=== PATIENT | female | born 1970 | race Caucasian/White ===

== ENCOUNTER → 2021-07-28 10:50 | Outpatient (BNVA) | payer OTHER, SELFPAY | PROVIDERS: PCP Internal Medicine; Visit Provider Psychiatry & Neurology Neurology | DX: E88.49 Other mitochondrial metabolism disorders (principal); R27.0 Ataxia, unspecified; R26.9 Unspecified abnormalities of gait and mobility | CPT/HCPCS: 99202 ==

== ENCOUNTER 2021-08-22 14:59 | Outpatient (REF) | payer OTHER, SELFPAY ==
--- NOTE | ~2021-08-22 | MR_ITS ---
EXAMINATION: MR BRAIN WITHOUT CONTRAST CLINICAL INFORMATION: Ataxia. COMPARISON: None. TECHNIQUE: Multiplanar, multisequence imaging of the brain was performed without contrast. FINDINGS: No diffusion abnormalities are identified to suggest an acute or subacute infarct. The ventricles are normal in size. No mass effect or midline shift is seen. No brain parenchymal signal abnormality is noted. No extra-axial fluid collections are seen. The brainstem appears normal. There is mild cerebellar volume loss of indeterminate etiology. The gradient refocused acquisition demonstrates no pathologic magnetic susceptibility artifact to indicate underlying acute or chronic blood products. The craniovertebral junction, marrow signal, and midline structures are normal. The major intracranial flow voids at the level of the [place] are preserved. The dural venous sinus flow voids are maintained. The mastoid air cells and paranasal sinuses are well aerated. MR/MR head/brain wo con IMPRESSION: Mild cerebellar volume loss of indeterminate etiology. No brainstem signal abnormalities. No acute process.
== END 2021-08-22 15:00 | disposition home or self-care (01) ==
LOC: HO.MRI 14:59
PROVIDERS: PCP Internal Medicine; Visit Provider Psychiatry & Neurology Neurology
DX: R27.0 Ataxia, unspecified (principal)
CPT/HCPCS: 70551

== ENCOUNTER → 2022-05-14 14:21 | Outpatient (BNVA) | payer OTHER, SELFPAY | PROVIDERS: PCP Internal Medicine; Visit Provider Psychiatry & Neurology Neurology | DX: R27.0 Ataxia, unspecified (principal); E88.49 Other mitochondrial metabolism disorders | CPT/HCPCS: 99212 ==

== ENCOUNTER 2023-05-10 12:54 | Outpatient (AMB) | payer OTHER, SELFPAY ==
--- NOTE | 2023-05-10 12:57 | MHC.OFFVIS ---
Intake Vital Signs 05/10/23 13:02 Height 5 ft 1 in Weight 213 lb 8 oz BMI 40.3 BP 124/82 Blood Pressure Location Rt brachial Position Sitting Respiration 16 Pulse 101 H Pulse Source Pulse Oximeter Pulse Oximetry (%) 96 Oxygen Delivery Method Room Air Intake Visit Reasons: 1 yr f/u - LVM Intake Note: Pt presents to the office for a one year follow up for ataxia. Pt reports she a little worse since the last visit. She has since moved into an assisted living facility. Desktop Support Specialist Required: No Allergies No Known Allergies Allergy (Verified 05/10/23 13:02) Medication List - Last Reconciled 05/10/23 by Malorie King MD aripiprazole 5 mg PO DAILY diclofenac potassium 50 mg PO TID PRN 30 days duloxetine 30 mg PO DAILY duloxetine 60 mg PO DAILY lamotrigine 50 mg PO DAILY lamotrigine 200 mg PO QAM levocarnitine (bulk) (L-Carnitine powder) ea miscellaneous pregabalin 200 mg PO BEDTIME propranolol 10 mg PO BID riboflavin (vitamin B2) 100 mg PO DAILY trazodone 50 - 100 mg PO BEDTIME PRN HPI HPI Comments History of Present Illness Details 53-year-old female with mitochondrial disorder follow up and follow up of her 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 After her son of mitochondrial disorder at 20 years of age she was seen by Dr. Ibarra at [facility]. Now she is following up with Dr. Phan at [facility] who sees her once a year in collaboration with the local physician . She was seeing Dr Alcocer until April of 2021 she also has psychiatric disorder and sees Dr. Leila Lawrence at [facility]. No falls. she uses a walker. she lives in an Assisted Living facility. [facility] Medical History Chronic headaches Cognitive disorder Gait disorder Tremors of nervous system NARP (neuropathy, ataxia and retinitis pigmentosa) Depression Ataxia Surgical History H/O tubal ligation Social History Alcohol intake: never Patient Tobacco Use Status: Never used Tobacco Review of Systems Neuro Reports Abnormal speech present Physical Exam Vital Signs: Last Vital Signs Pulse 101 H 05/10/23 13:02 Resp 16 05/10/23 13:02 BP 124/82 05/10/23 13:02 Pulse Ox 96 05/10/23 13:02 Oxygen Delivery Method Room Air 05/10/23 13:02 BMI result Body Mass Index 40.3 Const Other: abnormal movements Right Upper extremity and LE - coarse irregular movement - not c/w tremors , more like ataxia or chorea General: cooperative, healthy appearing and awake Nutritional Appearance: overweight Orientation/consciousness: patient oriented x3 HEENT Head: Yes normal to inspection and Yes normocephalic Neck Neck: Yes normal visual inspection Neuro Other: gait- mild stoop, can walk without the walker, small steps , mild off balance General: patient oriented x3 and moves all extremities Cranial nerves: Yes Facial sensation intact/muscles of mastication intact, Yes Nystagmus not present, Yes Normal facial strength present and Yes Midline tongue present Cognition (Neuro): normal cognition Speech: Abnormal speech present Gait exam (Neuro): Other gait observations present (mild wide based and off balance ) Motor exam (neuro): 5/5 motor strength present throughout and Other motor observations present Coordination: [id number] test normal Assessment & Plan Assessment & Plan (1) NARP (neuropathy, ataxia and retinitis pigmentosa): Code(s): E88.49 - Other mitochondrial metabolism disorders (2) Ataxia: Code(s): R27.0 - Ataxia, unspecified (3) Gait disorder: Code(s): R26.9 - Unspecified abnormalities of gait and mobility Plan Suggested PT and chair exercises. Continue pregabalin 200mg qd Continue following up at [facility] for her mitochondrial disorder. Orders: Orders PT Evaluation and Treatment Today E88.49 - Other mitochondrial metabolism disorders, R26.9 - Unspecified abnormalities of gait and mobility Coding Level of Care Code Est Pt Level 4 (27302) Diagnoses NARP (neuropathy, ataxia and retinitis pigmentosa) E88.49 Ataxia R27.0 Gait disorder R26.9
[2023-05-10 13:02] VITALS: BP 124/82; PULSE 101; RESP 16; O2SAT 96; BMI 40.3
== END 2023-05-10 13:21 | disposition home or self-care (01) ==
PROVIDERS: Visit Provider Psychiatry & Neurology Neurology
DX: E88.49 Other mitochondrial metabolism disorders (principal); R27.0 Ataxia, unspecified
CPT/HCPCS: 99214

== ENCOUNTER → 2023-05-10 12:54 | Outpatient (BNVA) | payer OTHER, SELFPAY | PROVIDERS: Visit Provider Psychiatry & Neurology Neurology | DX: E88.49 Other mitochondrial metabolism disorders (principal); R27.0 Ataxia, unspecified; R26.9 Unspecified abnormalities of gait and mobility | CPT/HCPCS: 99212 ==